=== PATIENT | female | born 1985 | race Caucasian/White ===

== ENCOUNTER 2017-11-20 07:43 | Inpatient (IN) | payer OTHER ==
[~2017-11-20] VITALS: Ht 162.6 cm; Wt 69.1 kg
[2017-11-20] VITALS (9 sets, daily range): BP systolic 105–120; BP diastolic 55–73
[~2017-11-20 07:43] MED LIST: BACLOFEN20 MG PO; MOTRIN800 MG PO; VICODIN 5-3001 EACH PO; ZITHROMAX Z-PA250 MG PO
[2017-11-20] MEDS ORDERED: IBUPROFEN800 MG PO (08:37)
[2017-11-20 11:17] LABS: AMPHETAMINE NEGATIVE (500 ng/mL); BARBITURATES NEGATIVE (200 ng/mL); BENZODIAZEPINES NEGATIVE (150 ng/mL); BUPRENORPHINE NEGATIVE (10 ng/mL); COCAINE NEGATIVE (150 ng/mL); METHADONE NEGATIVE (200 ng/mL); METHAMPHETAMINE NEGATIVE (500 ng/mL); OPIATES (MORPHINE) NEGATIVE (100 ng/mL); OXYCODONE NEGATIVE (100 ng/mL); PHENCYCLIDINE NEGATIVE (25 ng/mL); PROPOXYPHENE NEGATIVE (300 ng/mL); THC CANNABINOIDS PRESUMPTIVE POSITIVE (50 ng/mL); TRICYCLIC ANTIDEPRESSANTS NEGATIVE (300 ng/mL)
[2017-11-20] MEDS ORDERED: EXPECTA PRENAT1 EACH PO (15:46)
[2017-11-20] MEDS ORDERED: PRILOSEC10 MG PO (15:46)
[2017-11-20] MEDS ORDERED: IRON325 M1 PO (15:50)
[2017-11-21 05:36] LABS: BASOPHIL (%) 0.5 % (0-1); BASOPHIL COUNT 0.1 K/uL (0-0.1); EOSINOPHIL (%) 1.4 % (0-5); EOSINOPHIL COUNT 0.2 K/uL (0-0.3); HEMATOCRIT 34.6 % (36.0-46.0); HEMOGLOBIN 12.3 G/DL (11.9-15.5); IMMATURE GRANULOCYTE (%) 0.5 % (0.0-0.7); LYMPHOCYTE (%) 22.3 % (15-42); LYMPHOCYTE COUNT 2.5 K/uL (1.0-2.8); MCH 31.9 PG (29.0-34.0); MCHC 35.5 G/DL (30.0-36.0); MCV 89.9 FL (83-99); MONOCYTE (%) 5.1 % (3-12); MONOCYTE COUNT 0.6 K/uL (0-0.8); NEUTROPHIL (%) 70.2 % (45-76); NEUTROPHIL COUNT 7.7 K/uL (1.8-6.4); PLATELET COUNT 153 K/uL (156-360); RBC DIS.WIDTH-CV 11.9 % (11.8-14.6); RBC DIS.WIDTH-SD 38.8 % (39-53); RED BLOOD COUNT 3.85 M/uL (3.80-5.20)
[2017-11-21 07:05] VITALS: BP 109/55
== END 2017-11-21 14:40 | disposition home or self-care (01) | DRG 775 ==
LOC: LDRP-OP 07:43 → 2WEST 07:44 → LDRP-OP 12-26 12:53
PROVIDERS: Midwife
PROC: 10907ZC Drainage of Amniotic Fluid, Therapeutic from Products of Conception, Via Natural or Artificial Opening (ICD-10-PCS; principal; 2017-11-20)
PROC: 10E0XZZ Delivery of Products of Conception, External Approach (ICD-10-PCS; principal; 2017-11-20)
DX: O99.344 Other mental disorders complicating childbirth (principal); O99.334 Smoking (tobacco) complicating childbirth; Z37.0 Single live birth; Z3A.39 39 weeks gestation of pregnancy; F17.200 Nicotine dependence, unspecified, uncomplicated; F11.90 Opioid use, unspecified, uncomplicated; O99.52 Diseases of the respiratory system complicating childbirth; J45.909 Unspecified asthma, uncomplicated; F41.0 Panic disorder [episodic paroxysmal anxiety]
CPT/HCPCS: 84999; 85025; 94799; J1050; J2590

== ENCOUNTER 2018-02-03 08:41 | Day surgery (SDC) | payer OTHER ==
[~2018-02-03] VITALS: Ht 162.6 cm; Wt 63.5 kg
[~2018-02-03 08:41] MED LIST changes: +ADVAIR 250/501 DISK IH; +EXPECTA PRENAT1 EACH PO; +IBUPROFEN800 MG PO; +IRON325 M1 PO; +PRILOSEC10 MG PO
[2018-02-03 09:21] VITALS: BP 110/59
[2018-02-03 10:00] LABS: BASOPHIL (%) 0.8 % (0-1); BASOPHIL COUNT 0.1 K/uL (0-0.1); EOSINOPHIL (%) 3.2 % (0-5); EOSINOPHIL COUNT 0.2 K/uL (0-0.3); HEMATOCRIT 40.9 % (36.0-46.0); HEMOGLOBIN 14.4 G/DL (11.9-15.5); IMMATURE GRANULOCYTE (%) 0.2 % (0.0-0.7); LYMPHOCYTE (%) 35.9 % (15-42); LYMPHOCYTE COUNT 2.2 K/uL (1.0-2.8); MCH 31.2 PG (29.0-34.0); MCHC 35.2 G/DL (30.0-36.0); MCV 88.7 FL (83-99); MONOCYTE (%) 5.6 % (3-12); MONOCYTE COUNT 0.4 K/uL (0-0.8); NEUTROPHIL (%) 54.3 % (45-76); NEUTROPHIL COUNT 3.4 K/uL (1.8-6.4); PLATELET COUNT 228 K/uL (156-360); RBC DIS.WIDTH-CV 11.2 % (11.8-14.6); RBC DIS.WIDTH-SD 35.8 % (39-53); RED BLOOD COUNT 4.61 M/uL (3.80-5.20); WHITE BLOOD COUNT 6.2 K/uL (4.1-10.2)
[2018-02-03] MEDS ORDERED: IBUPROFEN800 MG PO (13:07)
[2018-02-03 13:28] VITALS: BP 109/62
[2018-02-03 14:15] VITALS: BP 112/69
== END 2018-02-03 14:28 | disposition home or self-care (01) ==
LOC: SDC 08:41
PROVIDERS: Obstetrics & Gynecology Obstetrics
PROC: 0UT74ZZ Resection of Bilateral Fallopian Tubes, Percutaneous Endoscopic Approach (ICD-10-PCS; principal; 2018-02-03)
DX: Z30.2 Encounter for sterilization (principal); J45.909 Unspecified asthma, uncomplicated; Z87.891 Personal history of nicotine dependence
CPT/HCPCS: 84702; 85025; 88302; J0330; J1100; J1170; J1885; J2250; J2405; J2710; J3010; J7643